=== PATIENT | female | born 1965 | race Caucasian/White ===

== ENCOUNTER 2016-03-06 19:03 | Emergency (ER) | payer SELFPAY ==
[~2016-03-06] VITALS: Ht 152.4 cm; Wt 100.0 kg
[~2016-03-06 19:03] MED LIST: COMBAER INH; ZOFR4TAB3 SL
[2016-03-06 19:08] VITALS: BP 191/109; PULSE 86; RESP 16; TEMP 98.1; O2SAT 98
[2016-03-06] MEDS ORDERED: SODIUM CHLORIDE 0.9% FLUSH 5 ML FLUSH IVF PRN (19:30)
[2016-03-06] MEDS ORDERED: methylPREDNISolone SOD SUCC 125 MG/2 ML VIAL IVP ONE (19:30)
[2016-03-06] MEDS ORDERED: LEVOFLOXACIN 750 MG PREMIX INJ 150 ML IV ONE (19:30)
--- NOTE | 2016-03-06 19:34 | PD ---
HPI Chief Complaint: Cold / Flu Symptoms Time Seen by Provider: 19:19 Travel History International Travel<30 days: No Contact w/Intl Traveler<30days: No Traveled to known affect area: No History of Present Illness HPI The patient is 50 year old female who presents to the [facility] emergency department with a history of sore throat that began on Monday, followed quickly by congestion, sinus pressure in her cheeks and forehead, and a cough productive of green sputum. She reports that she's also had laryngitis since Monday. The patient reports that she has a history of asthma and has been having to use her rescue inhaler more frequently. She reports that she only has a rescue inhaler as her asthma is usually well-controlled. She denies having a primary care physician. She denies smoking. The patient reports having a subjective fever. She reports having chest tightness associated with the wheezing and shortness of breath. She denies having any lower cavity edema , calf pain, or erythema. She denies having any prior history of coronary artery disease. The patient reports that she's had posttussive emesis 3 today. She denies having any nausea. The patient denies any history of neck pain, abdominal pain, diarrhea, urinary symptoms, or neurologic symptoms. [facility] Past Medical History Narrative Medical The patient's past medical history is significant for asthma. Reviewing the patient's electronic medical records the patient's other medical history includes a history of hepatitis B, history of anxiety and depression, history of a pelvis fracture in 1987. Arthritis: No Asthma: Yes Autoimmune Disease: No Blood Disorders: No Anxiety: Yes Depression: Yes Heart Rhythm Problems: No Cancer: No Cardiovascular Problems: Yes High Cholesterol: No Chemotherapy: No Chest Pain: No Congestive Heart Failure: No COPD: No Cerebrovascular Accident: No Diabetes: No Diminished Hearing: No Endocrine: No Gastrointestinal Disorders: Yes GERD: No Glaucoma: No Genitourinary: No Headaches: Yes Hepatitis: Yes (HEPATITIS B) Hiatal Hernia: No Hypertension: No Immune Disorder: No Kidney Stones: No Musculoskeletal: Yes (BROKEN PELVIS 1987) Neurologic: Yes Psychiatric: Yes Respiratory: Yes Immunizations Current: Yes Migraines: No Myocardial Infarction: No Radiation Therapy: No Renal Failure: No Seizures: No Sickle Cell Disease: No Sleep Apnea: Yes Thyroid Disease: No Ulcer: No : 4 Para: 2 Miscarriage: 1 : 1 Tubal Ligation: Yes Past Surgical History Narrative Surgical The patient's past surgical history is significant for a 2, tonsillectomy. Abdominal Surgery: No AICD: No Appendectomy: No Arteriovenous Shunt: No Cardiac Surgery: No Section: Yes (2) Cholecystectomy: No Ear Surgery: No Endocrine Surgery: No Eye Surgery: No Genitourinary Surgery: No Gynecologic Surgery: Yes (CEACERIAN) Insulin Pump: No Joint Replacement: No Oral Surgery: No Pacemaker: No Thoracic Surgery: No Tonsillectomy: Yes Other Surgery: Yes Social History Alcohol Use: Yes ("WEEKENDS") Tobacco Use: No Substance Use: No (QUIT COCAINE 11/2007) Allergies-Medications (Allergen,Severity, Reaction): Coded Allergies: Septra (Verified Allergy, Severe, SHAKES, 03/06/16) Sulfa (Verified Allergy, Severe, SHAKES, 03/06/16) Tylenol (Verified Adverse Reaction, Severe, MD ORDER FOR NO TYLENOL PRODUCTS (LIVER FAILURE), 03/06/16) Reported Meds & Prescriptions Reported Meds & Active Scripts Active Levaquin (Levofloxacin) 750 Mg Tab 750 Mg PO DAILY 7 Days Medrol Dosepak (Methylprednisolone) 4 Mg Dspk 4 Mg PO DIRECTED Per Pharmacist direction Proair Hfa 8.5 GM Inh (Albuterol Sulfate) 90 Mcg/Act Aer 2 Puff INH Q4-6H PRN 108 mcg/actuation Zofran ODT (Ondansetron HCl) 4 Mg Tab 4 Mg SL Q6H PRN FOR NAUSEA/VOMITING Combivent 14.7 Gm Aer 2 Puff INH Q6HPRN FOR WHEEZING Review of Systems Except as stated in HPI: all other systems reviewed are Neg General / Constitutional: Positive: Fever (subjective) Eyes: No: Visual changes HENT: No: Headaches Cardiovascular: Positive: Chest Pain or Discomfort (chest tightness), Dyspnea on exertion Respiratory: Positive: Cough, Shortness of Breath Gastrointestinal: Positive: Vomiting, No: Nausea, Diarrhea, Abdominal Pain, Indigestion, Loss of Appetite Genitourinary: No: Urgency, Frequency, Dysuria, Flank Pain Musculoskeletal: No: Pain Skin: No Rash Neurologic: No: Weakness, Focal Abnormalities, Coordination Problem, Change in Mentation, Slurred Speech, Sensory Disturbance Psychiatric: No: Depression Endocrine: No: Polydipsia Hematologic/Lymphatic: No: Easy Bruising Physical Exam Narrative General: The patient is a well-developed well-nourished female in no acute distress. Head and Neck exam: Head is normocephalic atraumatic. Eyes: EOMI, pupils are equal round and reactive to light. Nose: Midline septum with pink mucous membranes Mouth: Dentition unremarkable. Moist mucus membranes. Posterior oropharynx is slightly erythematous. No tonsillar hypertrophy. Uvula midline. Airway patent. The patient has laryngitis noted on examination when talking. Neck: No palpable lymphadenopathy. No nuchal rigidity. No thyromegaly. Cardiovascular: Regular rate and rhythm without murmurs, gallops, or rubs. No pulse deficit to the extremities and simultaneous auscultation and palpation of her radial artery. Lungs: The patient has soft expiratory wheezes audible in bilateral lung renee, no accessory muscle use, no prolonged expiratory phase of breathing, crackles audible in the right lower lung base that clear with coughing. Abdomen: Soft, without tenderness to palpation in all 4 quadrants of the abdomen. No guarding, rebound, or rigidity. Normal bowel sounds are audible. No tenderness on palpation of McBurney's point. Extremities: No clubbing, cyanosis, or edema. 2+ pulses in all 4 extremities. No calf tenderness on palpation. Back: No spinous process tenderness to palpation. No costovertebral angle tenderness to palpation. Neurologic Exam: Grossly nonfocal. Skin Exam: No rash noted. Intact skin that is warm and dry. Data Data Last Documented VS Vital Signs Date Time Temp Pulse Resp B/P Pulse Ox O2 Delivery O2 Flow Rate FiO2 03/06/16 20:16 79 20 96 03/06/16 19:08 98.1 191/109 Room Air Orders Electrocardiogram (03/06/16 19:26) Complete Blood Count With Diff (03/06/16 19:26) Comprehensive Metabolic Panel (03/06/16 19:26) Lipase (03/06/16 19:26) Urinalysis - C+S If Indicated (03/06/16 19:26) Chest, Single Ap (03/06/16 19:26) Iv Access Insert/Monitor (03/06/16 19:26) Ecg Monitoring (03/06/16 19:26) Oximetry (03/06/16 19:26) Ed Urine Pregnancytest Poc (03/06/16 19:26) Sodium Chloride 0.9% Flush (Ns Flush) (03/06/16 19:30) Methylprednisolone So Succ Inj (Solumedr (03/06/16 19:30) Albuterol-Ipratropium Neb (Duoneb Neb) (03/06/16 19:30) Levofloxacin 750 Mg Premix Inj (Levaquin (03/06/16 19:30) Influenzae A/B Antigen (03/06/16 19:34) Benzonatate (Tessalon) (03/06/16 20:45) Albuterol-Ipratropium Neb (Duoneb Neb) (03/06/16 20:45) Labs Laboratory Tests Test 03/06/16 03/06/16 19:37 19:50 Urine Color YELLOW Urine Turbidity HAZY Urine pH 5.5 Urine Specific [place] 1.020 Urine Protein NEG mg/dL Urine Glucose (UA) NEG mg/dL Urine Ketones NEG mg/dL Urine Occult Blood NEG Urine Nitrite NEG Urine Bilirubin NEG Urine Urobilinogen 2.0 MG/DL Urine Leukocyte Esterase SMALL Urine RBC 2 /hpf Urine WBC 3 /hpf Urine Squamous Epithelial 13 /hpf Cells Urine Bacteria RARE /hpf Urine Mucus FEW /lpf Microscopic Urinalysis Comment CULT NOT INDICATED White Blood Count 4.8 TH/MM3 Red Blood Count 4.81 MIL/MM3 Hemoglobin 14.5 GM/DL Hematocrit 41.6 % Mean Corpuscular Volume 86.6 FL Mean Corpuscular Hemoglobin 30.1 PG Mean Corpuscular Hemoglobin 34.8 % Concent Red Cell Distribution Width 12.8 % Platelet Count 322 TH/MM3 Mean Platelet Volume 8.1 FL Neutrophils (%) (Auto) 49.1 % Lymphocytes (%) (Auto) 35.2 % Monocytes (%) (Auto) 10.9 % Eosinophils (%) (Auto) 3.4 % Basophils (%) (Auto) 1.4 % Neutrophils # (Auto) 2.3 TH/MM3 Lymphocytes # (Auto) 1.7 TH/MM3 Monocytes # (Auto) 0.5 TH/MM3 Eosinophils # (Auto) 0.2 TH/MM3 Basophils # (Auto) 0.1 TH/MM3 CBC Comment DIFF FINAL Differential Comment Sodium Level 137 MEQ/L Potassium Level 3.9 MEQ/L Chloride Level 103 MEQ/L Carbon Dioxide Level 24.9 MEQ/L Anion Gap 9 MEQ/L Blood Urea Nitrogen 13 MG/DL Creatinine 0.85 MG/DL Estimat Glomerular Filtration 71 ML/MIN Rate Random Glucose 106 MG/DL Calcium Level 8.8 MG/DL Total Bilirubin 0.4 MG/DL Aspartate Amino Transf 27 U/L (AST/SGOT) Alanine Aminotransferase 32 U/L (ALT/SGPT) Alkaline Phosphatase 76 U/L Total Protein 8.0 GM/DL Albumin 4.1 GM/DL Lipase 162 U/L MDM Medical Decision Making Medical Screen Exam Complete: Yes Emergency Medical Condition: Yes Medical Record Reviewed: Yes Differential Diagnosis Asthma exacerbation, versus allergy exacerbation, versus pneumonia, versus acute bronchitis Narrative Course During the course of the patients emergency department visit, the patients history, examination, and differential diagnosis were reviewed with the patient. The patient had IV access obtained and blood work sent for analysis. The patient was placed on a front desk monitor with oximetry and blood pressure monitoring. An EKG was ordered. The patient's EKG done on arrival shows a sinus rhythm heart rate is 71, no acute ST segment changes, no ST segment elevation is noted, T waves are inverted in lead 3, V1, no ST segment depression. The patient was provided DuoNeb 2, Levaquin 750 IV times one, Solu-Medrol 125 mg IV. The patients laboratory studies were reviewed and remarkable for a CBC that shows a white count of 4.8, hemoglobin 14.5, platelets 322 with 10.9 monocytes. Urinalysis shows a small leukocyte esterase rare bacteria 13 squamous epithelial cells, culture not indicated. Influenza A and B are negative. CMP is unremarkable. Radiology studies were reviewed and remarkable for a chest x-ray that shows no acute abnormality. The patient was reexamined and reportedly was feeling improved. On reexamination of her lungs, she continued to have some soft expiratory wheezes, however O2 saturations continued to be 97 and 98%. The patient will be given a third DuoNeb. The patient was given benzonatate 200 mg by mouth 1 for cough. Regarding the patient's elevated blood pressure, the patient reports that she has been taking a decongestant which could be contributing this. She denies having any prior history of hypertension. She was instructed to avoid over-the- counter decongestants and follow-up with a primary care physician for reassessment in the next 2 days. The patient was given a prescription for Levaquin, Medrol Dosepak taper, benzonatate, and a refill of the pro-air inhaler. The patient is resting comfortably and feels better, is alert and in no distress. The patients results and examination findings were discussed with the patient. The repeat examination is unremarkable and benign. The history, exam, diagnostic testing, and current condition do not suggest any significant pathology to warrant further testing, continued ED treatment, admission, or surgical evaluation at this point. The vital signs have been stable. The patient does not have uncontrollable pain, intractable vomiting, or other significant symptoms. The patient's condition is stable and appropriate for discharge. The patient will pursue further outpatient evaluation with a primary care physician or other designated or consulting physician as indicated in the discharge instructions. The patient expressed understanding and was agreeable with this plan. Diagnosis Primary Impression: Asthma exacerbation Additional Impression: Acute bronchitis Qualified Code: J20.9 - Acute bronchitis, unspecified organism Referrals: Suzy Lopez MD 2 days Patient Instructions: Acute Bronchitis (ED), Asthma (ED), General Instructions Departure Forms: Tests/Procedures, Work Release Enter return to work date: Mar 08, 2016 Med/Other Pt SpecificInfo: Prescription(s) given Scripts Benzonatate 200 Mg [id number] Mg PO TID PRN (COUGH) #15 CAP Ref 0 Prov:Demetria Doe MD 03/06/16 Levofloxacin (Levaquin)750 Mg [id number] Mg PO DAILY 7 Days Ref 0 Prov:Demetria Doe MD 03/06/16 Methylprednisolone Dosepak (Medrol Dosepak)4 Mg Dspk4 Mg PO DIRECTED #1 DSPK Ref 0 Per Pharmacist direction Prov:Deemtria Doe MD 03/06/16 Albuterol 8.5 GM Inh (Proair Hfa 8.5 GM Inh)90 Mcg/Act Aer2 Puff INH Q4-6H PRN ( SHORTNESS OF BREATH) #1 INHALER Ref 0 108 mcg/actuation Prov:Demetria Doe MD 03/06/16 Disposition: 01 DISCHARGE HOME Condition: Stable Demetria Doe MD Mar 06, 2016 19:34
--- NOTE | 2016-03-06 19:48 | RADRPT ---
EXAM DATE/TIME: 03/06/2016 19:28 [place] COMPARISON: No previous studies available for comparison. INDICATIONS : Shortness of breath and coughing wiht pain MEDICAL HISTORY : None. SURGICAL HISTORY : None. ENCOUNTER: Initial ACUITY: 1 day PAIN SCORE: 5/10 LOCATION: Bilateral chest FINDINGS: A single view of the chest demonstrates the lungs to be symmetrically aerated without evidence of mas s, infiltrate or effusion. The cardiomediastinal contours are unremarkable. Osseous structures are intact. CONCLUSION: No evidence of acute cardiopulmonary disease. Cole Arriaga MD on March 06, 2016 at 19:47 Board Certified Radiologist. This report was verified electronically.
[2016-03-06] MEDS: RESP: ALBUTEROL 2.5 MG/IPRATROPIUM 0.5 MG NEB (SCH) INH (20:06)
[2016-03-06 20:11] LABS: AUTOMATED NEUTROPHIL # 2.3 TH/MM3 (1.8-7.7); BASOPHIL # 0.1 TH/MM3 (0-0.2); BASOPHIL % 1.4 % (0.0-2.0); EOSINOPHIL # 0.2 TH/MM3 (0-0.4); EOSINOPHIL % 3.4 % (0.0-4.0); HEMATOCRIT 41.6 % (35.0-46.0); HEMO FLAGS DIFF FINAL; LYMPH % 35.2 % (9.0-44.0); LYMPHOCYTE # 1.7 TH/MM3 (1.0-4.8); MEAN CELL VOLUME 86.6 FL (80.0-100.0); MEAN CORPUSCULAR HEMOGLOBIN 30.1 PG (27.0-34.0); MEAN CORPUSCULAR HGB CONC 34.8 % (32.0-36.0); MONO % 10.9 % (0.0-8.0); NEUT % 49.1 % (16.0-70.0); PLATELET COUNT 322 TH/MM3 (150-450); RED BLOOD COUNT 4.81 MIL/MM3 (4.00-5.30); RED CELL DISTRIBUTION WIDTH 12.8 % (11.6-17.2); WHITE BLOOD COUNT 4.8 TH/MM3 (4.0-11.0)
[2016-03-06 20:16] VITALS: PULSE 79; RESP 20; O2SAT 96
[2016-03-06 20:16] LABS: BACTERIA, URINE RARE /hpf; BLOOD, URINE NEG (NEG); COMMENT (UR) CULT NOT INDICATED; CULTURE IF INDICATED CULT NOT INDICATED; GLUCOSE,URINE NEG (NEG); KETONE, URINE NEG (NEG); MUCUS URINE FEW /lpf (OCC); NITRITE,URINE NEG (NEG); PH, URINE 5.5 (5.0-8.5); SQUAMOUS EPITHELIAL CELL URINE 13 /hpf (0-5); URINE COLOR YELLOW (YELLW/STRAW)
[2016-03-06] MEDS ORDERED: ALBUAER3 INH (20:33)
[2016-03-06] MEDS ORDERED: MEDR4PAK PO (20:33)
[2016-03-06] MEDS ORDERED: LEVA750T PO (20:33)
[2016-03-06 20:43] LABS: ANION GAP 9 MEQ/L (5-15); AST (GOT) 27 U/L (15-37); BICARBONATE 24.9 MEQ/L (21.0-32.0); BLOOD UREA NITROGEN 13 MG/DL (7-18); CHLORIDE 103 MEQ/L (98-107); GLOMERULAR FILTRATION RATE 71 ML/MIN (>89); POTASSIUM 3.9 MEQ/L (3.5-5.1); SODIUM (NA) 137 MEQ/L (136-145)
[2016-03-06] MEDS ORDERED: RESP: ALBUTEROL 2.5 MG/IPRATROPIUM 0.5 MG NEB (SCH) NEB ONE (20:45)
[2016-03-06] MEDS ORDERED: BENZONATATE 100 MG CAP PO ONE (20:45)
[2016-03-06 20:47] LABS: ALKALINE PHOSPHATASE 76 U/L (45-117); ALT (GPT) 32 U/L (10-53); TOTAL BILIRUBIN ADULT 0.4 MG/DL (0.2-1.0)
[2016-03-06] MEDS ORDERED: BENZ1CAP34 PO (21:15)
[2016-03-06 21:31] VITALS: BP 165/103
--- NOTE | 2016-03-07 17:46 | EKG ---
Date Performed: 03/06/2016 Time Performed: 19:51:20 PTAGE: 50 years EKG: Sinus rhythm NORMAL ECG NO PREVIOUS TRACING DOCTOR: Maine Millan Interpretating Date/Time 03/07/2016 17:44:15
== END 2016-03-06 21:32 | disposition home or self-care (01) ==
LOC: NEPE 19:03
DX: J45.901 Unspecified asthma with (acute) exacerbation (principal); J20.9 Acute bronchitis, unspecified; R07.9 Chest pain, unspecified
CPT/HCPCS: 71010; 80053; 81001; 83690; 84703; 85025; 87804; 93005; 94640; 94664; 96365; 96375; 99284; J1956; J2930